=== PATIENT | male | born 1985 | race Caucasian/White ===

== ENCOUNTER 2018-09-30 16:17 | Emergency (ER) | payer BC ==
[~2018-09-30] VITALS: Ht 175.3 cm; Wt 104.5 kg
[2018-09-30 16:29] VITALS: BP 142/91
[2018-09-30] MEDS ORDERED: HYDR-4455 PO (16:30)
[2018-09-30] MEDS ORDERED: ACETAMINOPHEN 500 MG TABLET PO ONE (17:00)
[2018-09-30] MEDS ORDERED: AMOX TR/POT CLAV 875 MG/125 MG TABLET PO ONE (17:30)
[2018-09-30] MEDS ORDERED: HYDROCODONE/ACETAMINOPHEN 5-325 MG TABLET PO ONE (18:15)
== END 2018-09-30 20:26 | disposition left against medical advice (07) ==
LOC: EMS 16:18
DX: K08.89 Other specified disorders of teeth and supporting structures (principal); Z90.49 Acquired absence of other specified parts of digestive tract